=== PATIENT | female | born 1960 | race Caucasian/White ===

== ENCOUNTER 2025-03-07 12:55 | Emergency (ER) | payer BC, SELFPAY ==
--- OUTSIDE RECORDS SUMMARY | 2025-03-05 10:30 | XMS_ITS | Encounter Summary ---
[facility] Address [address] [place] [address] Care Team Providers Care Blanching Machine Operator Name Role Phone Provider, No Known Primary Care Provider Unavail able Reason for Visit * Reason Comments Controlled type 2 diabetes mellitus with out complication Follow up Hypothyroidism Encounter Details Date Type Department Care Team (Late st Contact Info) Description 03/05/2025 10:30 AM EST Office Visit [facility] ENDOCR[facility]OLOGY [address] [place] [address] Luisa Rose MD [address] [place], [place] [id number] Controlled type 2 diabetes mellitus without complication, with long-term current use of insulin (Primary Dx); Hypothyroidism (acquired) Social History Tobacco Use Types Packs/Day Years Used Date Smoking Tobacco: Never Passive Smoke Exposure: Never Smokeless Tobacco: Never Alcohol Use Standard Drinks/Week Comments Never 0 (1 standard drink = 0.6 oz pur e alcohol) PHQ-2 Answer Date Recorded PHQ-2 Score 0 02/10/2019 AUDIT-C Answer Date Recorded Q1: How often do you have a drink containing alcohol? Never 03/05/2025 Q2: How many drinks containi ng alcohol do you have on a typical day when you are drinking? Patient does not drink Q3: How often do you have si x or more drinks on one occasion? Never 03/05/2025 Comments No Sex and Gender Information Value Date Recorded Sex Assigned at Female 06/29/2024 8:42 PM EST Legal Sex Female 10:29 AM EDT Gender Identity Not on file Sexual Orientation Not on file documented as of this encounter Last Filed Vital Signs Vital Sign Reading Time Taken Comments Blood Pressure 134/76 03/05/2025 10:32 AM EST Pulse 75 03/05/2025 10:32 AM EST Temperature - - Respiratory Rate - - Oxygen Saturation 97% 03/05/2025 10:32 AM EST Inhaled Oxygen Concentration - - Weight 78.9 kg (174 lb) 03/05/2025 10:32 AM EST Height 157.5 cm (5' 2 ) 03/05/2025 10:32 AM EST Body Mass Index 31.83 03/05/2025 10:32 AM EST documented in this encounter Functional Status * AUDIT-C Score Answer Date of Assessment Author 0 03/05/2025 10:33 AM EST Rubina Cook MA * Question Answer Date of Assessment Author Q1: How often do you have a drink containing alcohol? Never 03/05/2025 10:33 AM EST Rubina Cook M A Q2: How many drinks containing alcohol do you have on a typical day when you are drinking? Patient does not drink 03/05/2025 10:33 AM EST Rubina Cook MA Q3: How often do you have six or more drinks on one occasion? Never 03/05/2025 10:33 AM EST Rubina Cook M A documented as of this encounter Progress Notes * Luisa Rose MD - 03/05/2025 10:30 AM EST Controlled type 2 diabetes mellitus without complication (Follow up) and Hypothyroidism Subjective Hetal Joseph is a 65 y.o. female is here today for follow-up. DM type 2, diagnosed in June 2013. Complication: none Patient had eye exam, no abnormalities seen. Meds: Synjardy and glipizide 10 mg Hypothyroidism levothyroxine 25 mcg Hyperlipidemia -on simvastatin 10 mg No symptoms. Patient is doing well on current medications. Review of Systems Constitutional: Positive for fatigue and unexpected weight change (weight gain). Neurological: Positive for weakness and numbness. Objective Blood pressure 134/76, pulse 75, height 157.5 cm (62 ), weight 78.9 kg (174 lb), SpO2 97%. . Physical Exam Vitals reviewed. Constitutional: Appearance: Normal appearance. Cardiovascular: Rate and Rhythm: Normal rate and regular rhythm. Pulses: Normal pulses. Heart sounds: Normal heart sounds. Pulmonary: Effort: Pulmonary effort is normal. Breath sounds: Normal breath sounds. Musculoskeletal: General: No swelling. Neurological: Mental Status: She is alert and oriented to person, place, and time. Psychiatric: Mood and Affect: Mood normal. Thought Content: Thought content normal. This SmartLink has not been configured with any valid records. Results for orders placed or performed in visit on 03/05/25 POC Glycosylated Hemoglobin (Hb A1C) Collection Time: 03/05/25 10:40 AM Specimen: Blood Result Value Ref Range Hemoglobin A1C 7.2 (A) 4.5 - 5.7 % Lot Number [id number] Expiration Date 09/25/2026 POC Glucose, Blood Collection Time: 03/05/25 10:40 AM Specimen: Blood Result Value Ref Range Glucose 123 70 - 130 mg/dL Lot Number [id number] Expiration Date 09/14/2025 Assessment & Plan Problems Addressed this Visit Endocrine and Metabolic Hypothyroidism (acquired) Other Visit Diagnoses Controlled type 2 diabetes mellitus without complication, with long-term current use of insulin - Primary Relevant Orders POC Glycosylated Hemoglobin (Hb A1C) (Completed) POC Glucose, Blood (Completed) Diagnoses Codes Comments Controlled type 2 diabetes mellitus without complication, with long-term current use of insulin - Primary ICD-10-CM: E11.9, Z79.4 ICD-9-CM: 250.00, V58.67 Hypothyroidism (acquired) ICD-10-CM: E03.9 ICD-9-CM: 244.9 1. Cont levothyroxine 25 mcg daily. Thyroid function is normal. 2. Statin continued. 3. Diabetes mellitus type 2. Cont Glipizide 10 mg BID. Cont Synjardy 2 tabs daily. Meds refilled and fasting labs reviewed. Follow-up in 3 months documented in this encounter Plan of Treatment Upcoming Encounters Date Type Department Care Team (Late st Contact Info) Description 07/14/2025 10:30 AM EDT Office Visit [facility] [address] [place] [id number] Luisa Rose MD [address] [place] [address] documented as of this encounter Procedures Procedure Name Priority Date/Time Associated Diagnosis Comments POCT GLUCOSE, BLD (NON STRIP) Routine 03/05/2025 10:40 AM EST Controlled type 2 diabetes mellitus without complication, with long-term current use of insulin POCT GLYCOSYLATED HEMOGLOBIN (HGB A1C) Routine 03/05/2025 10:40 AM EST Controlled type 2 diabetes mellitus without complication, with long-term current use of insulin documented in this encounter Results * POC Glucose, Blood (03/05/2025 10:40 AM EST) Glucose 123 70 - 130 mg/dL Lot Number [id number] Expiration Date 09/14/2025 Blood 03/05/2025 10:4 0 AM EST Luisa Leo MD POINT OF CARE TEST ORDERABLES Final Result * (ABNORMAL) POC Glycosylated Hemoglobin (Hb A1C) (03/05/2025 10:40 AM EST) Hemoglobin A1C 7.2(A) 4.5 - 5.7 % [facility] Lot Number [id number] [facility] Expiration Date 09/25/2026 [facility] Blood 03/05/2025 10:4 0 AM EST us Luisa Leo MD POINT OF CARE TEST ORDERABLES Final Result [facility]
[address] [place] [address], [place] [phone] documented in this encounter Visit Diagnoses Diagnosis Controlled type 2 diabetes mellitus without complication, with long-term current use of insulin- Primary Hypothyroidism (acquired) Unspecified hypothyroidism documented in this encounter Care Teams Blanching Machine Operator Relationship Specialty Start Date End Date Provider, [place] [address] PCP - General 12/25/22 documented as of this encounter
[2025-03-07] VITALS (7 sets, daily range): BP systolic 120–179; BP diastolic 67–82; PULSE 77–90; RESP 13–16; TEMP 36.7–36.9; O2SAT 94–97; BMI 31.4
--- NOTE | 2025-03-07 13:26 | ED_ITS ---
Discharge Plan Disposition Patient Disposition: Home, Self-Care Condition: Good Prescriptions Prescriptions: New dicyclomine 20 mg tablet 20 mg PO QID PRN (Reason: abdominal pain) Qty: 20 0RF famotidine [Pepcid] 20 mg tablet 20 mg PO BID 14 Days Qty: 28 0RF ondansetron 4 mg tablet,disintegrating 4 mg PO Q8H PRN (Reason: nausea and vomiting) 4 Days Qty: 12 0RF No Action Synjardy XR 12.5-1,000 mg tablet, IR - ER, biphasic 24hr 12.5 tab PO DAILY Patient Comments: TAKE 2 TABLETS BY MOUTH ONCE DAILY simvastatin 40 mg tablet 40 mg PO DAILY Patient Comments: TAKE 1 TABLET BY MOUTH EVERY DAY AT BEDTIME glipizide 10 mg tablet extended release 24hr 10 mg PO DAILY Patient Comments: TAKE 1 TABLET BY MOUTH ONCE DAILY estradiol 1 mg tablet 1 mg PO DAILY Patient Comments: TAKE 1 TABLET BY MOUTH ONCE DAILY DIRECTED levothyroxine 25 mcg tablet 25 mcg PO DAILY Patient Comments: TAKE 1 TABLET BY MOUTH ONCE DAILY benzonatate 100 mg capsule 100 mg PO TID PRN (Reason: cough) Qty: 30 0RF Referrals Follow up/Referrals: Osei Castle II, MD [Staff Physician, Gastroenterology] - See instructions Provider,ReferralMD [Primary Care Provider, Medical] - See instructions Activity Restrictions/Add. Instructions Additional Instructions/Restrictions: You were evaluated in the emergency department today. As we discussed, your CT scan of your small bowel is a little bit abnormal. For this, I recommend follow-up with GI. Please call Dr. Castle office to schedule an appointment. technical support professional your prescriptions at the pharmacy and take them as needed for symptoms. Return to the emergency department for new or worsening symptoms. Clinical Impressions Clinical Impression: Abdominal pain, Nausea & vomiting, Abnormal CT scan, small bowel Instructions Patient Instructions: DI for Acute Abdominal Pain Print Language Print Language: Icelandic Discharge ED Provider: Nisa Pérez General Adult HPI <Ana Martinez MD - Last Filed: 03/07/25 14:59> General Chief complaint: Abdominal Pain Stated complaint: abd. pain radiating to back Time Seen by Provider: 03/07/25 13:26 Mode of Arrival: Ambulatory Source of Information: Patient Description of Symptoms (Recalled from ER Triage Doc. by RN): Pt presents with c/o URQ oain that started on saturday. The pain has radiated into her back. Pt has had pancreatitis before and states this feels similar to one of those episodes, but she can still eat with no issues. History of Present Illness HPI narrative: Patient is a 65-year-old past medical history of type 2 diabetes prior cholecystectomy presents to the emergency department with epigastric pain. Pain started 3 days ago associated with nausea and vomiting. Radiates to the right flank. Denies dysuria or increased urinary frequency. Pain seems similar to her prior bout of pancreatitis that was caused by gallstone. Patient has since had her gallbladder removed. Denies alcohol use. Former smoker. Denies any chest pain shortness of breath cough congestion fever or headache. Pain is 5 out of 10 with no specific aggravating or alleviating symptoms. Related Data Home Medications ?Medication ?Instructions ?Recorded ?Confirmed empagliflozin 12.5 mg-metformin ER 12.5 tab PO DAILY 0 06/28/24 03/07/25 1,000 mg tablet,extended rel 24 hr (Synjardy XR) estradiol 1 mg tablet 1 mg PO DAILY 06/28/2403/07 glipizide 10 mg tablet, extended 10 mg PO DAILY 03/07/25 release 24 hr levothyroxine 25 mcg tablet 25 mcg PO DAILY 06/28/24 1 05/07/24 simvastatin 40 mg tablet 40 mg PO DAILY 06/28/2401/21 Previous Rx's ?Medication ?Instructions ?Recorded benzonatate 100 mg capsule 100 mg PO TID PRN cough #30 caps 06/28/24 dicyclomine 20 mg tablet 20 mg PO QID PRN abdominal p ain 03/07/25 #20 tabs famotidine 20 mg tablet (Pepcid) 20 mg PO BID 2 weeks #28 tabs 03/07/25 ondansetron 4 mg disintegrating 4 mg PO Q8H PRN nausea and 03/07/25 tablet vomiting 4 days #12 tabs Allergies Allergy/AdvReac Type Severity Reaction Status Date / Time No Known Allergies Allergy Verified 03/07/25 13:32 [facility] <Ana Martinez MD - Last Filed: 03/07/25 14:59> [facility] Disclaimer: The information contained in this section may have been updated after the patient was seen, as this information can be updated by other users. Medical History (Updated 03/07/25 @ 16:12 by Nisa Pérez DO) Sinusitis Social History (Updated 03/07/25 @ 14:59 by Ana Martinez MD) Smoking Status: Never smoker alcohol intake: never current occupational status: other Travel in the last 8 weeks?: None Have you lived/traveled outside US in past 30 days?: No Contact w/someone who lives/traveled outside US past 30 days?: No Exposure to someone with infectious disease in past 14 days?: No Do you have a fever (greater than 100.4 F or 38 C)?: No Have you tested positive for COVID-19?: No Exposed to someone with COVID-19 in past 14 days?: No Do you have a sore throat?: No Do you have a cough?: No Do you have any weakness?: No Do you have any diarrhea?: No Are you experiencing any unusual bleeding?: No Do you have any muscle aches/pain?: No Do you have any abdominal pain?: No Are you experiencing loss of taste or smell?: No <Ana Martinez MD - Last Filed: 03/07/25 14:59> ROS Obtained: Yes All systems reviewed & no additional complaints except as documented Physical Exam <Ana Martinez MD - Last Filed: 03/07/25 14:59> General General appearance: alert and in no apparent distress Respiratory Respiratory exam: Present normal lung sounds bilaterally; Absent respiratory distress or wheezes Cardiovascular Cardiovascular exam: Present regular rate and normal rhythm Abdominal Exam Abdominal exam: Present soft and tenderness (Epigastrium and right upper quadrant); Absent distention Extremities Exam Extremities exam: Absent edema Back Exam Back exam: Present CVA tenderness (R) Neurological Exam Neurological exam: Present alert and oriented X3 Medical Decision Making <Ana Martinez MD - Last Filed: 03/07/25 14:59> Medical Records Screening: Per USPSTF and CDC recommendations, given the prevalence of disease in our region, it is our hospital?s policy to screen for HIV and viral Hepatitis for all patients aged 18 and over and those with ongoing risk factors. [place] Inquiry Pt receiving controlled substance: No Vital Signs: 03/07/25 13:10 03/07/25 14:05 03/07/25 14:30 Temperature 98.4 F Temperature Source Oral Pulse Rate 80 82 Pulse Rate [Right] 90 Respiratory Rate 16 Blood Pressure 120/67 Blood Pressure [Right Arm] 179/82 H Blood Pressure Mean [Right Arm] 114 Blood Pressure Source [Right Arm] Automatic Cuff Blood Pressure Position [Right Arm] Sitting 02 Sat by Pulse Oximetry 97 95 95 Oxygen Delivery Method Room Air Room Air 03/07/25 15:00 03/07/25 15:30 03/07/25 16:00 Temperature Temperature Source Pulse Rate 79 77 Pulse Rate [Right] Respiratory Rate Blood Pressure 137/76 140/71 135/68 Blood Pressure [Right Arm] Blood Pressure Mean [Right Arm] Blood Pressure Source [Right Arm] Blood Pressure Position [Right Arm] 02 Sat by Pulse Oximetry 95 96 94 L Oxygen Delivery Method Room Air Room Air Lab Data Lab Results 03/07/25 13:16: Urine Color Yellow, Urine Appearance Clear, Urine pH 6.0, Ur Specific [place] 1.010, Urine Protein Negative, Urine Glucose (UA) 3+, Urine Ketones Negative, Urine Blood Negative, Urine Nitrate Negative, Urine Bilirubin Negative, Urine Urobilinogen 0.2, Ur Leukocyte Esterase Negative 03/07/25 13:19: WBC 10.7, RBC 5.55 H, Hgb 15.4, Hct 47.4 H, MCV 85.4, MCH 27.7, MCHC 32.5, RDW 15.6, Plt Count 369, MPV 10.6 H, Neut % (Auto) 65.1, Lymph % (Auto) 24.8, [place] % (Auto) 5.3, Eos % (Auto) 3.7, Baso % (Auto) 0.7, Neut # (Auto) 7.0, Lymph # (Auto) 2.7, [place] # (Auto) 0.6, Eos # (Auto) 0.4, Baso # (Auto) 0.1, Sodium 138, Potassium 4.1, Chloride 102, Carbon Dioxide 26, Anion Gap 14.1, BUN 10, Creatinine 0.60, Estimated Creat Clear 71, Estimated GFR 101, Est GFR ( Amer) 122, Glucose 176 H, Calcium 10.0, Total Bilirubin 0.7, A ST 39 H, ALT 47, Alkaline Phosphatase 103, Troponin I < 0.01, Total Protein 8.7 H, Albumin 5.4 H, Globulin 3.3 H, Albumin/Globulin Ratio 1.6, Lipase 129 03/07/25 13:19 03/07/25 13:19 Orders (Tests/Meds): ED MEDICATIONS Generic Name Dose Route Start Last Admin Trade Name Frechicho PRN Reason Stop Dose Admin Sodium Chloride 10 ml 03/07/25 14:16 03/07/25 14:17 Sodium Chloride 0.9% 10ml Syr (Rad Only) IV 04/06/25 14:15 10 ml NEEDED PRN Administration Maintain IV Site Discontinued Medications Generic Name Dose Route Start Last Admin Trade Name Freq PRN Reason Stop Dose Admin Iopamidol 75 ml 03/07/25 14:16 03/07/25 14:17 Iopamidol-370 (76%);100ml Bottle IV 03/07/25 14:17 75 ml ONCE ONE Administration ORDERS Category Date Time Status CT abdomen pelvis w con Stat Cat Scan 03/07/25 13:33 Completed XR chest 2V Stat Exams 03/07/25 13:33 Completed Complete Blood Count Auto Diff Stat Lab 03/07/25 13:19 Completed Comprehensive Metabolic Panel Stat Lab 03/07/25 13:19 Completed Lipase Stat Lab 03/07/25 13:19 Completed Occult Blood,Stool Stat Lab 03/07/25 15:58 Ordered Troponin I Q3H Lab 03/07/25 16:45 Ordered Troponin I Q3H Lab 03/07/25 19:45 Ordered Troponin I Stat Lab 03/07/25 13:19 Completed UA/RFX Microscopic Stat Lab 03/07/25 13:16 Completed Medical Decision Narrative: In summary, this 65-year-old female presents to the emergency department today with right flank pain epigastric pain. On initial evaluation patient is hemodynamically stable saturating appropriately on room air afebrile no acute. Differential diagnosis includes but is not limited to pancreatitis urolithiasis pyelonephritis DKA gastritis hepatitis pneumonia ACS. Based on these concerns, I ordered CBC CMP troponin lipase UA CT abdomen pelvis with IV contrast, chest x- ray ECG personally interpreted demonstrates normal sinus rhythm no ST elevation ST depression T wave inversions Patient offered treatment however declined at this time Labs personally reviewed demonstrate mild elevation in AST, hyperglycemia, Normal lipase. XR personally interpreted demonstrates no focal consolidation CT imaging personally interpreted demonstrate no peripancreatic inflammation no obstruction. On repeat evaluation patient symptoms are stable. At 3 PM transfer of care given to Dr. Pérez to follow-up CT abdomen pelvis read and final disposition. <Nisa N Beto, DO - Last Filed: 03/07/25 16:28> Vital Signs: 03/07/25 13:10 03/07/25 14:05 03/07/25 14:30 Temperature 98.4 F Temperature Source Oral Pulse Rate 80 82 Pulse Rate [Right] 90 Respiratory Rate 16 Blood Pressure 120/67 Blood Pressure [Right Arm] 179/82 H Blood Pressure Mean [Right Arm] 114 Blood Pressure Source [Right Arm] Automatic Cuff Blood Pressure Position [Right Arm] Sitting 02 Sat by Pulse Oximetry 97 95 95 Oxygen Delivery Method Room Air Room Air 03/07/25 15:00 03/07/25 15:30 03/07/25 16:00 Temperature Temperature Source Pulse Rate 79 77 Pulse Rate [Right] Respiratory Rate Blood Pressure 137/76 140/71 135/68 Blood Pressure [Right Arm] Blood Pressure Mean [Right Arm] Blood Pressure Source [Right Arm] Blood Pressure Position [Right Arm] 02 Sat by Pulse Oximetry 95 96 94 L Oxygen Delivery Method Room Air Room Air Lab Data Lab Results 03/07/25 13:16: Urine Color Yellow, Urine Appearance Clear, Urine pH 6.0, Ur Specific [place] 1.010, Urine Protein Negative, Urine Glucose (UA) 3+, Urine Ketones Negative, Urine Blood Negative, Urine Nitrate Negative, Urine Bilirubin Negative, Urine Urobilinogen 0.2, Ur Leukocyte Esterase Negative 03/07/25 13:19: WBC 10.7, RBC 5.55 H, Hgb 15.4, Hct 47.4 H, MCV 85.4, MCH 27.7, MCHC 32.5, RDW 15.6, Plt Count 369, MPV 10.6 H, Neut % (Auto) 65.1, Lymph % (Auto) 24.8, [place] % (Auto) 5.3, Eos % (Auto) 3.7, Baso % (Auto) 0.7, Neut # (Auto) 7.0, Lymph # (Auto) 2.7, [place] # (Auto) 0.6, Eos # (Auto) 0.4, Baso # (Auto) 0.1, Sodium 138, Potassium 4.1, Chloride 102, Carbon Dioxide 26, Anion Gap 14.1, BUN 10, Creatinine 0.60, Estimated Creat Clear 71, Estimated GFR 101, Est GFR ( Amer) 122, Glucose 176 H, Calcium 10.0, Total Bilirubin 0.7, A ST 39 H, ALT 47, Alkaline Phosphatase 103, Troponin I < 0.01, Total Protein 8.7 H, Albumin 5.4 H, Globulin 3.3 H, Albumin/Globulin Ratio 1.6, Lipase 129 Orders (Tests/Meds): ED MEDICATIONS Generic Name Dose Route Start Last Admin Trade Name Freq PRN Reason Stop Dose Admin Sodium Chloride 10 ml 03/07/25 14:16 03/07/25 14:17 Sodium Chloride 0.9% 10ml Syr (Rad Only) IV 04/06/25 14:15 10 ml NEEDED PRN Administration Maintain IV Site Discontinued Medications Generic Name Dose Route Start Last Admin Trade Name Freq PRN Reason Stop Dose Admin Iopamidol 75 ml 03/07/25 14:16 03/07/25 14:17 Iopamidol-370 (76%);100ml Bottle IV 03/07/25 14:17 75 ml ONCE ONE Administration ORDERS Category Date Time Status CT abdomen pelvis w con Stat Cat Scan 03/07/25 13:33 Completed XR chest 2V Stat Exams 03/07/25 13:33 Completed Complete Blood Count Auto Diff Stat Lab 03/07/25 13:19 Completed Comprehensive Metabolic Panel Stat Lab 03/07/25 13:19 Completed Lipase Stat Lab 03/07/25 13:19 Completed Occult Blood,Stool Stat Lab 03/07/25 15:58 Ordered Troponin I Q3H Lab 03/07/25 16:45 Ordered Troponin I Q3H Lab 03/07/25 19:45 Ordered Troponin I Stat Lab 03/07/25 13:19 Completed UA/RFX Microscopic Stat Lab 03/07/25 13:16 Completed Medical Decision Narrative: In summary, this 65-year-old female presents to the emergency department today with right flank pain epigastric pain. On initial evaluation patient is hemodynamically stable saturating appropriately on room air afebrile no acute. Differential diagnosis includes but is not limited to pancreatitis urolithiasis pyelonephritis DKA gastritis hepatitis pneumonia ACS. Based on these concerns, I ordered CBC CMP troponin lipase UA CT abdomen pelvis with IV contrast, chest x- ray ECG personally interpreted demonstrates normal sinus rhythm no ST elevation ST depression T wave inversions Patient offered treatment however declined at this time Labs personally reviewed demonstrate mild elevation in AST, hyperglycemia, Normal lipase. XR personally interpreted demonstrates no focal consolidation CT imaging personally interpreted demonstrate no peripancreatic inflammation no obstruction. On repeat evaluation patient symptoms are stable. At 3 PM transfer of care given to Dr. Pérez to follow-up CT abdomen pelvis read and final disposition. Yoselin, DO: I think you have the patient at 3 PM at time of departure the previous provider. On my assessment, she is resting comfortably. Abdominal exam is benign. Vitals are reassuring on cardiac telemetry. Labs obtained are reassuring with reassuring CBC showing no significant leukocytosis or anemia. Chemistry is reassuring with the exception of very mildly elevated AST, which is nonspecific. ALT and bilirubin are within normal range. Troponin is negative. Lipase is within normal limits. Urinalysis is not concerning for infection. I independently interpreted CT scan prior to radiology read and did not note any. Pancreatic fat stranding. Per V rad read, they note concern for abnormal density in the small bowel. Unclear what this could indicate at this time, but they recommended follow-up if GI bleed is suspected. Patient denies any bloody or black tarry stools, and she is not anemic with a normal BUN which suggest against serious life-threatening GI bleed. Ultimately given symptomatic improvement, reassuring workup, I feel that she is appropriate for discharge home with close GI follow-up. I prescribed Bentyl, Pepcid, and Zofran for supportive care. Strict return precautions were given Critical Care <Ana Martinez MD - Last Filed: 03/07/25 14:59> Critical Care Time Critical Care Time: No
--- NOTE | 2025-03-07 13:33 | XR_ITS ---
PROCEDURE INFORMATION: Exam: XR Chest Exam date and time: 03/07/2025 2:02 PM Age: 65 years old Clinical indication: Pain; Right-sided; Additional info: Right flank pain TECHNIQUE: Imaging protocol: Radiologic exam of the chest. Views: 2 views. COMPARISON: No relevant prior studies available. FINDINGS: Lungs: Unremarkable. No consolidation. Pleural spaces: Unremarkable. No pleural effusion. No pneumothorax. Heart/Mediastinum: Unremarkable. No cardiomegaly. Bones/joints: Unremarkable. IMPRESSION: No acute findings.
--- NOTE | 2025-03-07 13:33 | CT_ITS ---
PROCEDURE INFORMATION: Exam: CT Abdomen And Pelvis With Contrast Exam date and time: 03/07/2025 2:17 PM Age: 65 years old Clinical indication: Abdominal pain; Epigastric; Additional info: Epigastric pain TECHNIQUE: Imaging protocol: Computed tomography of the abdomen and pelvis with contrast. Radiation optimization: All CT scans at this facility use at least one of these dose optimization techniques: automated exposure control; mA and/or kV adjustment per patient size (includes targeted exams where dose is matched to clinical indication); or iterative reconstruction. Contrast material: ISOVUE; Contrast volume: 75 ml; Contrast route: IV; COMPARISON: CR XR CHEST 2V 03/07/2025 2:02 PM FINDINGS: Lungs: Subsegmental atelectasis left lower lobe. Liver: Normal. No mass. Gallbladder and biliary ducts: Previous cholecystectomy. Pancreas: Normal. No ductal dilation. Spleen: Normal. No splenomegaly. Adrenal glands: Normal. No mass. Kidneys and ureters: Normal. No hydronephrosis. Stomach and bowel: Rounded hyperdensity within a small bowel loop to the left of midline measures 9 x 6 mm. Negative for bowel obstruction. Appendix: No evidence of appendicitis. Intraperitoneal space: Unremarkable. No free air. No significant fluid collection. Vasculature: Unremarkable. No abdominal aortic aneurysm. Lymph nodes: Unremarkable. No enlarged lymph nodes. Urinary bladder: Unremarkable as visualized. Reproductive: Unremarkable as visualized. Bones/joints: Unremarkable. No acute fracture. Soft tissues: Unremarkable. IMPRESSION: Rounded hyperdensity within a small bowel loop to the left of midline measures 9 x 6 mm. Likely ingested material. Consider short-term follow-up if there is concern for GI bleed.
--- OUTSIDE RECORDS SUMMARY | 2025-03-07 13:35 | XMS_ITS | Encounter Summary ---
Author Organization [facility] Address [address] [place] [address] Care Team Providers Care Gravel Truck Driver Name Role Phone Provider, No Known Primary Care Provider Unavail able Encounter Details Date Type Department Care Team (Latest Contact Info) Description 03/05/2025 Travel Social History Tobacco Use Types Packs/Day Years [...] on file documented as of this encounter Functional Status * AUDIT-C Score Answer Date of Assessment Author 0 03/05/2025 10:33 AM Rubina Foley MA * Question Answer Date of Assessment Author Q1: How often do you have a drink containing alcohol? Never 03/05/2025 10:33 AM Rubina Foley M A Q2: How many drinks containing alcohol do you have on a typical day when you are drinking? Patient does not drink 03/05/2025 10:33 AM Rubina Foley MA Q3: How often do you have six or more drinks on one occasion? Never 03/05/2025 10:33 AM Rubina Foley M A documented as of this encounter Plan of Treatment Upcoming Encounters Date Type Department Care Team (Late st Contact Info) Description 07/14/2025 10:30 AM EDT Office Visit [facility] [address] [facility] [address] [place] [phone] Luisa Rose MD [address] [address] documented as of this encounter Visit Diagnoses Not on filedocumented in this encounter Care Teams Gravel Truck Driver Relationship Specialty Start Date End Date Provider, [place] [address] PCP - General 12/25/22 documented as of this encounter
--- OUTSIDE RECORDS SUMMARY | 2025-03-07 13:35 | XMS_ITS | Encounter Summary ---
Author Organization [facility] Address [address] [place] [address] Care Team Providers Care Cell Stripper Name Role Phone Provider, No Known Primary Care Provider Unavail able Encounter Details Date Type Department Care Team (Late st Contact Info) Description 11/15/2024 Results Follow-Up [facility] [address] [place] [address] Luisa Rose MD [address] [place] [address] Social History Tobacco Use Types Packs/Day Years Used Date Smoking Tobacco: Never Passive Smoke Exposure: Never Smokeless Tobacco: Never Alcohol Use Standard Drinks/Week Comments No 0 (1 standard drink = 0.6 oz pur e alcohol) PHQ-2 Answer Date Recorded PHQ-2 Score 0 02/10/2019 Comments No Sex and Gender Information Value Date Recorded Sex Assigned at Female 06/29/2024 8:42 PM EST Legal Sex Female 10:29 AM EDT Gender Identity Not on file Sexual Orientation Not on file documented as of this encounter Plan of Treatment Upcoming Encounters Date Type Department Care Team (Late st Contact Info) Description 07/14/2025 10:30 AM EDT Office Visit [facility] [address] [place] [address] Luisa Rose MD [address] [place] [address] documented as of this encounter Visit Diagnoses Not on filedocumented in this encounter Care Teams Cell Stripper Relationship Specialty Start Date End Date Provider, [place] [address] PCP - General 12/25/22 documented as of this encounter
--- OUTSIDE RECORDS SUMMARY | 2025-03-07 13:35 | XMS_ITS | Encounter Summary ---
Author Organization [facility] Address [address] [place] [address] Care Team Providers Care Bridge Crane Operator Name Role Phone Provider, No Known Primary Care Provider Unavail able Reason for Visit * Reason Comments Med Refill Encounter Details Date Type Department Care Team (Late st Contact Info) Description 01/14/2025 Refill [facility] [address] [facility] [address] [place] [phone] Luisa Rose MD [address] [address] Social History Tobacco Use Types Packs/Day [...] on file documented as of this encounter Miscellaneous Notes * Telephone Encounter - Lo Murrell (Ana) - 01/14/2025 12:53 PM EDT Rx Refill Note Requested Prescriptions Pending Prescriptions Disp Refills glipizide (GLUCOTROL XL) 10 MG 24 hr tablet [Pharmacy Med Name: glipiZIDE ER 10 MG Oral Tablet Extended Release 24 Hour] 90 tablet 0 Sig: Take 1 tablet by mouth once daily Last office visit with prescribing clinician: 11/10/2024 Next office visit with prescribing clinician: 03/05/2025 Lo Smith) Handy 01/14/25, 12:53 EDT documented in this encounter Plan of Treatment Upcoming Encounters Date Type Department Care Team (Late st Contact Info) Description 07/14/2025 10:30 AM EDT Office Visit [facility]CR[facility] [address] [phone] Luisa Rose MD [address] [facility] [address] [place] [address] documented as of this encounter Visit Diagnoses Not on filedocumented in this encounter Care Teams Bridge Crane Operator Relationship Specialty Start Date End Date Provider, [place] [address] PCP - General 12/25/22 documented as of this encounter
--- OUTSIDE RECORDS SUMMARY | 2025-03-07 13:35 | XMS_ITS | Clinical Summary ---
Author Organization [facility] Address [address] [place] [address] Care Team Providers Care Geothermal Sheet Metal Worker Name Role Phone Provider, No Known Primary Care Provider Unavail able Allergies No known active allergies Medications Blood Glucose Monitoring Suppl (ACCU-CHEK GUIDE ME) w/Device kit 1 kit Daily. 1 kit 9 Active Accu-Chek Guide test strip Test 1-2 Times Daily 100 each 11 2 Active estradiol (ESTRACE) 1 MG tablet Take 1 tablet by mouth Daily. as directed 4 Active glipizide (GLUCOTROL XL) 10 MG 24 hr tablet Take 1 tablet by mouth Daily. 90 tablet 3 5 Active Empagliflozin-m etFORMIN HCl ER (Synjardy XR) 12.5-1000 MG tablet sustained-relea se 24 hour Take 2 tablets by mouth Daily. 180 tablet 3 5 Active simvastatin (ZOCOR) 40 MG tablet Take 1 tablet by mouth every night at bedtime. 90 tablet 3 5 Active levothyroxine (Euthyrox) 25 MCG tablet Take 1 tablet by mouth Daily. 90 tablet 3 5 Active levothyroxine (Euthyrox) 25 MCG tablet Take 1 tablet by mouth Daily. 90 tablet 3 4 03/05/20 25 Discontinu ed(Reorder ) simvastatin (ZOCOR) 40 MG tablet Take 1 tablet by mouth every night at bedtime. 90 tablet 1 03/28/202 5 03/05/20 25 Discontinu ed(Reorder ) glipizide (GLUCOTROL XL) 10 MG 24 hr tablet Take 1 tablet by mouth once daily 90 tablet 5 03/05/20 25 Discontinu ed(Reorder ) Synjardy XR 12.5-1000 MG tablet sustained-relea se 24 hour Take 2 tablets by mouth once daily 180 tablet 5 03/05/20 25 Discontinu ed(Reorder ) Active Problems Problem Noted Date Diagnosed Date Controlled diabetes mellitus 08/26/2015 Assessment & Plan (06/30/2024 11:59 AM EST): Diabetes is worsening. Continue current treatment regimen. Recommended an ADA diet. Regular aerobic exercise. Discussed foot care. A1c has drifted up since last time but this is likely due to some dietary indiscretion and illness. Patient will continue current medications of glipizide XL 10 mg daily and Synjardy XR 12.08/999 mg, 2 tablets daily. She will restart exercise and get back on track with her diet. Check urine microalbumin creatinine ratio today. Further recommendations based on results. Diabetes will be reassessed 4 months. Assessment & Plan (08/26/2015 10:47 AM EDT): Doing well on metformin, A1C is stable Hyperlipidemia 08/26/2015 Assessment & Plan (08/26/2015 10:48 AM EDT): LDL is 103 on the current dose of simvastatin Hypothyroidism (acquired) 08/26/2015 Assessment & Plan (06/30/2024 12:00 PM EST): Clinically euthyroid on levothyroxine 25 mcg daily. Check thyroid function test today. Further recommendations based on results. Assessment & Plan (08/26/2015 10:49 AM EDT): Start levothyroxine 25 mcg. She felt better after taking sample of 25 mcg in February, but haven't received notification about prescription and didn't continue it Resolved Problems Problem Noted Date Diagnosed Date Resolved Date Abnormal finding on thyroid function test 02/21/2016 06/27/2023 Encounters Date Type Department Care Team Description 03/05/2025 10:30 AM EST Office Visit [facility] [address] [facility] [address] [place] [address] Luisa Rose MD Controlled type 2 diabetes mellitus without complication, with long-term current use of insulin (Primary Dx); Hypothyroidism (acquired) 03/05/2025 Travel 02/02/2025 Refill [facility] [address] [place] [address] Luisa Rose MD 01/14/2025 Refill [facility] [address] [facility] [address] [place] [address] Luisa Rose MD from Last 3 Months Immunizations Immunization Administration Dates Next Due Influenza, Unspecified 02/06/2022,2020,02/02/2020,01/28/2019, 8 Family History Medical History Relation Name Comments Cancer Brother Marcelino Throat cancer Cancer Father Jose A Colon cancer Hypertension Mother Bertha Diabetes Other M GM,uncle Heart attack Other M GM,uncle Diabetes Paternal Aunt Fortunato Diabetes Paternal Grandfather Gilmanuela Breast cancer Neg Hx Ovarian cancer Neg Hx Relation Name Status Comments Brother Marcelino Father Jose A Mother Bertha Other M GM,uncle Alive Paternal Aunt Fortunato Alive Paternal Grandfather Yared Social History Tobacco Use Types Packs/Day Years [...] on file Sexual Orientation Not on file Last Filed Vital Signs Vital Sign Reading Time Taken Comments Blood Pressure 134/76 03/05/2025 10:32 AM EST Pulse 75 03/05/2025 10:32 AM EST Temperature 35.9 C (96.6 F) 01/24/2024 10:23 AM EDT Respiratory Rate 16 01/24/2024 10:23 AM EDT Oxygen Saturation 97% 03/05/2025 10:32 AM EST Inhaled Oxygen Concentration - - Weight 78.9 kg (174 lb) 03/05/2025 10:32 AM EST Height 157.5 cm (5' 2 ) 03/05/2025 10:32 AM EST Body Mass Index 31.83 03/05/2025 10:32 AM EST Plan of Treatment Upcoming Encounters Date Type Department Care Team (Late st Contact Info) Description 07/14/2025 10:30 AM EDT Office Visit [facility] [address] [place] [phone] Luisa Rose MD [address] [place] [address] Health Maintenance Due Date Last Done Comments Annual Gynecologic Pelvic an d Breast Exam 1962 Pneumococcal Vaccine 50+ (1 of 2 - PCV) 1981 TDAP/TD VACCINES (1 - Tdap) 1981 COLOGUARD 2007 COLON CANCER SCREENING 5 YEA R SIGMOID[address]COPY [address] COLONOGRAPHY 2007 FECAL OCCULT BLOOD TEST 2007 FIT Testing (1 year) 2007 ZOSTER VACCINE (1 of 2) 01/24/2012 ANNUAL PHYSICAL 10/28/2015 HEPATITIS C SCREENING 10/28/2015 INFLUENZA VACCINE 11/27/2024 02/18/2024, , 02/15/2021, Additional history exists DIABETIC EYE EXAM 03/29/2025 03/29/2024 (Andry lopez-Reported (Performed Externally)), 03/24/2020, 04/20/2019 DIABETIC FOOT EXAM 06/30/2025 06/30/2024, 0 06/30/2024, 06/30/2024, Additional history exists URINE MICROALBUMIN-CREATININ E RATIO (uACR) 06/30/2025 06/30/2024, 05/31/2022, 11/17/2019, Additional history exists HEMOGLOBIN A1C 09/02/2025 03/05/2025, 10/27, 06/30/2024, Additional history exists LIPID PANEL 11/10/2025 11/10/2024, 01/27, 06/27/2023, Additional history exists MAMMOGRAM 09/01/2026 09/01/2024, 0508/2024, 08/28/2023, Additional history exists COLONOSCOPY 03/21/2032 03/21/2022 COLORECTAL CANCER SCREENING 03/21/2032 Procedures Procedure Name Priority Date/Time Associated Diagnosis Comments POCT GLUCOSE, BLD (NON STRIP) Routine 03/05/2025 10:40 AM EST Controlled type 2 diabetes mellitus without complication, with long-term current use of insulin POCT GLYCOSYLATED HEMOGLOBIN (HGB A1C) Routine 03/05/2025 10:40 AM EST Controlled type 2 diabetes mellitus without complication, with long-term current use of insulin LIPID PANEL Routine 11/10/2024 10:14 AM EDT Controlled type 2 diabetes mellitus without complication, with long-term current use of insulin MAMMO SCREENING DIGITAL TOMOSYNTHESIS BILATERAL W CAD Routine 08/31/2024 10:50 AM EDT Visit for screening mammogram MICROALBUMIN / CREATININE URINE RATIO Routine 06/30/2024 11:51 AM EST Controlled type 2 diabetes mellitus without complication, with long-term current use of insulin SCANNED - COLONOSCOPY 03/21/2022 SCANNED - EYE EXAM 03/24/2020 from Last 3 Months or Most Recently Relevant to Health Maintenance Results * POC Glucose, Blood (03/05/2025 10:40 AM EST) Glucose 123 70 - 130 mg/dL Lot Number [id number] Expiration Date 09/14/2025 Blood 03/05/2025 10:4 0 AM EST us Luisa Leo MD POINT OF CARE TEST ORDERABLES Final Result * (ABNORMAL) POC Glycosylated Hemoglobin (Hb A1C) (03/05/2025 10:40 AM EST) Hemoglobin A1C 7.2(A) 4.5 - 5.7 % [facility] Lot Number [id number] [facility] Expiration Date 09/25/2026 [facility] Blood 03/05/2025 10:4 0 AM EST us Luisa Leo MD POINT OF CARE TEST ORDERABLES Final Result [facility]
[address] [place] [address], * (ABNORMAL) Lipid Panel (11/10/2024 10:14 AM EDT) Total Cholesterol 170 0 - 200 mg/dL 11/10/2024 2:53 PM EDT [facility] Triglycerides 149 0 - 150 mg/dL 11/10/2024 2:53 PM EDT [facility] HDL Cholesterol 65(H) 40 - 60 mg/dL 11/10/2024 2:53 PM EDT [facility] LDL Cholesterol 80 0 - 100 mg/dL 11/10/2024 2:53 PM EDT [facility] VLDL Cholesterol 25 5 - 40 mg/dL 11/10/2024 2:53 PM EDT [facility] LDL/HDL Ratio 1.16 11/10/2024 2:53 PM EDT [facility] Blood Structure of left upper limb / Unknown Venipuncture / Unknown 11/10/2024 10:14 AM EDT 11/10/2024 10:14 AM EDT Narrative [facility] - 11/10/2024 2:53 PM EDT Cholesterol Reference Ranges (U.S. Department of Health and Human Services ATP III Classifications) Desirable <200 mg/dL Borderline High 200-239 mg/dL High Risk >240 mg/dL Triglyceride Reference Ranges (U.S. Department of Health and Human Services ATP III Classifications) Normal <150 mg/dL Borderline High 150-199 mg/dL High 200-499 mg/dL Very High >500 mg/dL HDL Reference Ranges (U.S. Department of Health and Human Services ATP III Classifications) Low <40 mg/dl (major risk factor for CHD) High >60 mg/dl ('negative' risk factor for CHD) LDL Reference Ranges (U.S. Department of Health and Human Services ATP III Classifications) Optimal <100 mg/dL Near Optimal 100-129 mg/dL Borderline High 130-159 mg/dL High 160-189 mg/dL Very High >189 mg/dL LDL is calculated using the NIH LDL-C calculation. us Luisa Leo MD LAB BLOOD ORDERABLES Final Res ult [facility]
[address] [place] [address], * Mammo Screening Digital Tomosynthesis Bilateral With CAD (08/31/2024 10:50 AM EDT) Anatomical Region Laterality Modality Breast N/A Mammography 09/01/2024 5:41 PM EDT Impressions 09/01/2024 5:43 PM EDT No findings suspicious for malignancy. ACR BI-RADS CATEGORY: 1, NEGATIVE RECOMMENDATION: Yearly mammogram, yearly clinical breast exam, and encourage self breast awareness. CAD was used. The standard false negative rate of mammography is between 10% and 25%. Complex patterns or increased breast density will markedly elevate the false negative rate of mammography. A letter, in lay terminology, with the results of this exam will be mailed to the patient. If there is a palpable area of concern, biopsy should be considered regardless of imaging findings. 09/01/2024 5:43 PM by Jennifer Lopez MD on Narrative 09/01/2024 5:43 PM EDT ROUTINE DIGITAL SCREENING MAMMOGRAM WITH TOMOSYNTHESIS HISTORY: Routine screening. IMAGE COMPARISON: Extending to 2019. TECHNIQUE: Low dose full field digital breast tomosynthesis imaging was performed with 2D and 3D acquisitions consisting of bilateral CC and MLO views. FINDINGS: There are scattered fibroglandular densities. The fibroglandular pattern appears stable. There is no mass, worrisome microcalcifications, or architectural distortion to suggest development of malignancy. Jovita Hou Bull REYES IMG MAMMOGRAPHY ORDER ARIES Final Result * (ABNORMAL) Microalbumin / Creatinine Urine Ratio - Urine, Clean Catch (06/30/2024 11:51 AM EST) Microalbumin/C reatinine Ratio 59.6(H) 0.0 - 29.0 mg/g 07/01/2024 2:03 AM EST [facility] Creatinine, Urine 36.9 mg/dL 07/01/2024 2:03 AM EST [facility] Microalbumin, Urine 2.2 mg/dL 07/01/2024 2:03 AM EST [facility] Urine Urine specimen obtained by clean catch procedure / Unknown Collection / Unknown 06/30/2024 11:51 AM EST 06/30/2024 11:51 AM EST Pauline FRASER URINE ORDERABLES Final Result [facility]
[address] [place] [address], * SCANNED - COLONOSCOPY (03/21/2022) Osei Castle MD CHART REVIEW TABS Final Result * SCANNED - EYE EXAM (03/24/2020) Anatomical Region Laterality Modality Other Luisa Leo MD CHART REVIEW TABS Final Res ult from Last 3 Months or Most Recently Relevant to Health Maintenance Insurance [facility] PPO Care Teams Geothermal Sheet Metal Worker Relationship Specialty Start Date End Date Provider, No Known [facility] [address] PCP - General 12/25/22
--- OUTSIDE RECORDS SUMMARY | 2025-03-07 13:35 | XMS_ITS | Data Portability ---
Author Organization [facility] Bryan tinoco, VALERIES BOWLER CLOSED Address [address] [facility] [place] [address] Assessment No assessment recorded. Plan of Treatment Reminders Order Date Submit Date Provider Last Modified By Organization Details Last Modified Time Details Appointments None recorded. Lab surgical pathology study 2024 025 [facility], [address] [place] [address], [phone], 11:36:03 Referral None recorded. Procedures None recorded. Surgeries None recorded. Imaging None recorded. Medication Orders None recorded. Patient TargetsNo targets recorded. Patient InstructionsNo instructions recorded. Reason for Referral None Reported. Results Created Date Observation Date Name Description Value Unit Range Abnormal Flag Note LastModifiedBy Organization Detail LastModifiedTime 07/22/1907/21/2024 SURGI TRU surgical SEE BELOW Gem topat holog y Repor t NAME: HETAL GARNICA PATH: [id number] PROCE DURE DATE: 07/21 SIGNO UT DATE: 07/22 Copy to: Diagn osis: Right upper arm- DERMA TOFIB REGINA SOURC E OF SPECI MEN: SKIN, R UPPER ARM CLINI TRU INFOR MATIO N: R/O: DF VS BCC. Gross Descr iptio n: The speci men consi sted of a agustin fragm ent which was bisec chantel and measu red 8 x 7 x 2 mm. All submi tted in one casse tte. Micro scopi c Descr iptio n: A benig n colle ction of fibro -hist iocyt ic cells is prese nt withi n the dermi s. NIMISHA YIN MD Yolanda d Out Date: 07/22 11:35 1 Not Available [facility] [address] [facility], [place], [address], 07/22/2024 11:36:03 Result Notes None recorded. Problems No Known Problems Procedures Surgical History Date Name Laterality Status Provider Name and Address Organization Details Recorded Time DAK - Biopsy, Tangential completed Alexia Osborne [facility] 07/21/2024 08:38:34 Imaging Results None recorded. Procedure Notes None recorded. Medical Equipment None Reported. Allergies No known drug allergies Medications Name Sig Start Date Stop Date Status Note LastModified by Organization Details LastModified Time estradiol active Not Available Not Leanne ilable Not Available levothyroxine active Not Available Not Available Not Available simvastatin active Not Available Not A vailable Not Available glipizide active Not Available Not Leanne ilable Not Available Synjardy active Not Available Not Avai lable Not Available Vitals None Recorded Social History None recorded. Functional Status None recorded. Mental Status None recorded. Family History Nothing Reported. Medical History No medical history recorded. Gynecological HistoryNo gynecological history recorded. Obstetrics History GPAL:G 0 P 0 0 0 0 Past Encounters Encounter ID Performer Location Encounter Start Date Encounter Closed Date Diagnosis/Indication Diagnosis SNOMED-CT Code Diagnosis ICD10 Code Diagnosis IMO Codes Diagnosis Note [id number] [facility] [place] [address] 07/30/2016 22:26:35 07/30/2016 22:26:35 [id number] GIRISH Mares, BUSINESS UNIT DIRECTOR [facility] [address] [place] [address] 07/21/2024 07:58:24 07/21/2024 09:47:19 Multiple benign melanocytic nevi 803620103 D22.5 - Benign moles seen on exam today - SPF 30 or higher broad-spec trum sunscreen recommende d with re-applica tion every 2 hours - Discussed sun protection measures, including wide-brimm ed hat, sun-protec tive clothing, and avoidance of sun during peak hours of 10am-4pm - Avoid tanning beds as these can increase the chances of all 3 types of skin cancer - Instructed to monitor for changes and to call us for appointmen t with any changing or worrisome lesions Seborrheic keratosis 394 010293 L82.1 - Benign overgrowth s of skin - Hereditary Senile angioma 9649652 I 78.1 - Benign blood vessel growths - Hereditary Solar lentigo 65515522 L 81.4 - Benign brown spots - Sun-induce d Neoplasm o f uncertain behavior of skin 29475572 D48.5 Recommend blade biopsy. Risks, benefit, and procedure discussed with patient. Consent obtained. Discussed the biopsy only takes the top layer of the lesion for testing. This does NOT treat the skin cancer if it is one. Advised they would need to return for more treatment given the type and depth of the skin cancer when the results come in. Rosacea 873130199 L71.8 Rosacea may produce acne-like pumps and redness that can be treated with topical creams and/or oral antibiotic s. Triggers include hot and spicy foods/liqu ids, sun exposure, emotions, and alcohol. May wax and wane. Pt notes the condition is not bothersome to her. Health Concerns Section Related Observation LastModified by Organization Detai ls LastModified Time None Recorded Concern Status LastModified by Organization Details LastModified Time None Recorded Advance Directives Directive None Recorded Payers Insurance Date Sequence Insurance Name Policy Number Policy Peter Covered Member ID Peter Member ID Guarantor Name 07/23/2024 1 [employer] [id number] Hetal Joseph [id number] Hetal Joesph Notes Date Note Type Note Provider Name and Address Organization Details Recorded Time 07/21/2024 text/html ROS as noted in the HPI Here for a full body skin examination - last skin check: N/A - no history of skin cancer - spots of concern today: R upper arm GIRISH SAMAYOA, BUSINESS UNIT DIRECTOR [address], [place], [address], [place] [facility] 07/21/2024 09:03:08 OBGyn Episode No OBEpisode recorded.
--- OUTSIDE RECORDS SUMMARY | 2025-03-07 13:35 | XMS_ITS ---
Author Organization [facility] Address [address] [place] [address] Care Team Providers Care Photographic Equipment Inspector Name Role Phone Provider, No Known Primary Care Provider Unavail able Lite Endocrine Disorders Status:Eligible (Enrolling) Start date:06/30/2024 Current support & services provided:Clinical Assessment, Refill Coordination , Benefits Investigation, [facility] Linked medications:Empagliflozin-metFORMIN HCl (Active) Linked problems:Controlled diabetes mellitus (Active) Continued Care and Services Coordination
--- OUTSIDE RECORDS SUMMARY | 2025-03-07 13:35 | XMS_ITS | Patient Health Record ---
Author Organization [facility] Address [address] [place] [address] Care Team Providers Care Associate Consulting Engineer Name Role Phone Laya Manning [phone] Reason For Referral No Information Social History Social History Additional Details Category Social Info Options Details Miscellaneous: Sexually active: SEXUAL AC TIV: Current Problems Problem Type SNOMED Code ICD Code Onset Dates Problem Status W/U Status Risk Notes Problem Hormone replacement therapy (672032860) Counseling for estrogen replacement therapy (Z79.890) 10/19/19 20 Active confirmed HRT Problem Gynecological examination normal (909195529279950 ) Cervical smear, as part of routine gynecological examination (Z01.419) 10/19/19 20 Active confirmed Annual without abnormal findings Plan Of Treatment No Information Medical (General) History Medical History History ICD Code Type 2 Diabetes Hypothyroid METFORMIN HCL 500 MG ORAL TABLET, ORAL ESTRADIOL 1 MG ORAL TABLET, ORAL GLIPIZIDE 10 MG ORAL TABLET, ORAL JANUVIA 100 MG ORAL TABLET, ORAL SIMVASTATIN 10 MG ORAL TABLET, ORAL SYNTHROID 25 MCG ORAL TABLET, ORAL Surgical History Surgery Date(Month/Year) Hysterectomy
--- OUTSIDE RECORDS SUMMARY | 2025-03-07 13:35 | XMS_ITS ---
Author Organization Unknown ENCOUNTERS Encounter Performer Location Date Diagnosis Diagnosis Status Pre Admit [facility] [address] [place] [address] [id number] Emergency [facility] [address] [place] [address] [id number] *Note: Encounters from your own facility or health system may be excluded. Allergies, Adverse Reactions, Alerts Allergen Type Severity Identification Date Medications Name Date Quantity Days Supplied GPI Number
--- OUTSIDE RECORDS SUMMARY | 2025-03-07 13:35 | XMS_ITS | Encounter Summary ---
Author Organization [facility] Address [address] [place] [address] Care Team Providers Care Equity Director Name Role Phone Provider, No Known Primary Care Provider Unavail able Reason for Visit * Reason Comments Med Refill Encounter Details Date Type Department Care Team (Late st Contact Info) Description 02/02/2025 Refill [facility] [address] [facility] [address] [place] [phone] Luisa Rose MD [address] [address] Social History Tobacco Use Types [...] encounter Miscellaneous Notes * Telephone Encounter - Giovana Harris MA - 02/02/2025 10:07 AM EDT Rx Refill Note Requested Prescriptions Pending Prescriptions Disp Refills Synjardy XR 12.5-1000 MG tablet sustained-release 24 hour [Pharmacy Med Name: Synjardy XR 12.5-1000MG Oral Tablet Extended Release 24 Hour] 180 tablet 0 Sig: Take 2 tablets by mouth once daily Last office visit with prescribing clinician: 11/10/2024 Next office visit with prescribing clinician: 03/05/2025 } Giovana Harris MA 02/02/25, 10:08 EDT documented in this encounter Plan of Treatment Upcoming Encounters Date Type Department Care Team (Late st Contact Info) Description 07/14/2025 10:30 AM EDT Office Visit [facility] [address] [address] Luisa Rose MD [address] [facility] [address] [place] [address] documented as of this encounter Visit Diagnoses Not on filedocumented in this encounter Care Teams Equity Director Relationship Specialty Start Date End Date Provider, [place] [address] PCP - General 12/25/22 documented as of this encounter
[2025-03-07 13:39] LABS: Hematocrit 47.4 % (37.0-47.0); Hemoglobin 15.4 g/dL (12.2-16.2); Immature Granulocytes % 0.4 %; Mean Corpuscular HGB Conc 32.5 g/dL (31.8-35.4); Mean Corpuscular Hemoglobin 27.7 pg (27.0-31.2); Mean Corpuscular Volume 85.4 fl (81-99); Nucleated Red Blood Cells % 0 %; Platelet Count 369 K/mm3 (142-424); Red Blood Count 5.55 M/mm3 (4.20-5.40); Red Cell Distribution Width-SD 48.2 fL; White Blood Count 10.7 K/mm3 (4.8-10.8)
[2025-03-07 13:42] LABS: Albumin Level 5.4 g/dl (3.5-5.0); Chloride 102 mmol/L (98-107); Potassium 4.1 mmoL/L (3.5-5.1); Sodium 138 mmol/L (136-145)
[2025-03-07 13:44] LABS: Alanine Aminotransferase 47 U/L (12-78); Aspartate Amino Transferase 39 U/L (14-36); Blood Urea Nitrogen 10 mg/dl (7-17); Creatinine Clearance Estimated 71 mL/min (50-200); Creatinine,Serum 0.60 mg/dl (0.52-1.04); Estimated Glomerular Filt Rate 101 ml/min (>60); GFR (African American) 122 ML/MIN (>60)
[2025-03-07 13:45] LABS: Albumin/Globulin Ratio 1.6 (1.1-1.8); Alkaline Phosphatase 103 U/L (38-126); Anion Gap 14.1 mEq/L (5-15); Bilirubin,Total 0.7 mg/dl (0.2-1.3); Calcium 10.0 mg/dl (8.4-10.2); Carbon Dioxide 26 mmol/L (22.0-30.0); Globulin 3.3 g/dL (1.3-3.2); Glucose 176 mg/dl (74-100); Lipase 129 U/L (23-300); Total Protein,Serum 8.7 g/dl (6.3-8.2)
--- NOTE | 2025-03-07 13:46 | ECG_ITS ---
APPROVED REPORT Exam: Resting ECG HR:79 bpm ECG Measurements Heart Rate 79 AXES [place] 149 P 58 QRSd 83 QRS 11 QT 347 T 66 QTc 382 Conclusion SINUS RHYTHM LOW QRS VOLTAGE IN PRECORDIAL LEADS [QRS DEFLECTION < 1.0 mV IN CHEST LEADS] POSSIBLE ANTERIOR MYOCARDIAL INFARCTION , PROBABLY OLD [30 ms Q WAVE IN V3/V4, OR R < 0.2 mV IN V4] BORDERLINE ECG UNCONFIRMED REPORT Electronically signed by : MADY NORIEGA, 03/08/2025 02:48:51
[2025-03-07 14:08] LABS: Troponin I < 0.01 ng/ml (0.00-0.034)
[2025-03-07] MEDS: SODIUM CHLORIDE 0.9% 10ML SYR (RAD ONLY) 10 ML IV (14:17)
[2025-03-07] MEDS: IOPAMIDOL-370 (76%);100ML BOTTLE 75 ML IV (14:17)
[2025-03-07 15:08] LABS: Bilirubin,Urine Negative (Negative); Color,Urine YELLOW (Yellow); Glucose,Urine (UA) 3+ (Negative); Ketones,Urine Negative (Negative); Leukocyte Esterase,Urine NEGATIVE (Negative); PH,Urine 6.0 (5.0-8.5); Protein,Urine NEGATIVE (Negative); Specific Gravity, Urine 1.010 (1.005-1.030); Urobilinogen,Urine 0.2 EU/dl (0.2)
== END 2025-03-07 16:21 | disposition home or self-care (01) ==
PROVIDERS: Student in an Organized Health Care Education/Training Program; Emergency Provider Emergency Medicine
DX: R10.13 Epigastric pain (principal); R10.11 Right upper quadrant pain; R11.2 Nausea with vomiting, unspecified; R93.3 Abnormal findings on diagnostic imaging of other parts of digestive tract
CPT/HCPCS: 71046; 74177; 80053; 81003; 83690; 84484; 85025; 93005; 99285; Q9967